=== PATIENT | male | born 1985 | race American Indian/Alaskan Native ===

== ENCOUNTER 2021-07-04 07:02 | Emergency (ER) | payer SELFPAY ==
[2021-07-04 07:50] VITALS: BP 120/81
[2021-07-04] MEDS ORDERED: KETOROLAC 60 MG/2 ML INJ IM ONE (08:12)
--- NOTE | 2021-07-04 08:47 | XRay Report ---
Left ankle 3 views INDICATION: Ankle pain FINDINGS: Postoperative change with medial malleolar screws. Alignment appears normal. Appears intact. No acute fracture is seen. Signer Name: Jorge Alberto Jc MD Signed: 07/04/2021 8:43 AM Workstation Name: [id number]
--- NOTE | 2021-07-04 08:48 | Emergency Department Report ---
ED Lower Extremity HPI - General Chief Complaint: Extremity Injury, Lower Stated Complaint: ANKLE PAIN Source: patient Mode of arrival: Ambulatory Limitations: No Limitations - History of Present Illness Initial Comments: 36-year-old male presented ED complaining of left ankle pain. Patient states he was attempting to take a shower and slipped and fell hitting left ankle on the bathtub x 1day. The patient had a prior surgery to the left ankle from a ground-level fall in 2011. He states that he has eight screws [address]. patient is able to bear weight with pain. Mild edema noted. No obvious deformity noted. No obvious distracting injury noted. Patient denies any loss of conscious. MD Complaint: ankle injury, fall -: Last night Injury: Ankle: Right (slip and fall while attempt to get in shower ) Place: home Severity: moderate Severity scale (0 -10): 9 Improves With: nothing Worsens With: weight bearing Associated Symptoms: able to partially bear weight, ambulatory. denies: numbness, tingling Treatments Prior to Arrival: NSAIDS - Related Data Previous Rx's Medication Instructions Recorded Last Taken Type Ibuprofen [Motrin 800 MG tab] 800 mg PO Q8HR PRN #30 tablet 12/07/15 Unknown Rx cephALEXin [Keflex] 500 mg PO Q6HR #28 capsule 12/07/15 Unknown Rx traMADoL [Ultram 50 MG tab] 50 mg PO Q6HR PRN #15 tablet 12/07/15 Unknown Rx Ibuprofen [Motrin] 800 mg PO Q8HR PRN 15 Days #30 07/04/21 Unknown Rx tablet Allergies Allergy/AdvReac Type Severity Reaction Status Date / Time No Known Allergies Allergy Unverified 10/24/13 16:44 ED Review of Systems ROS: Stated complaint: ANKLE PAIN Other details as noted in HPI Constitutional: denies: chills, fever Eyes: denies: eye pain, eye discharge, vision change ENT: denies: ear pain, throat pain Respiratory: denies: cough, shortness of breath, wheezing Cardiovascular: denies: chest pain, palpitations Endocrine: no symptoms reported Gastrointestinal: denies: abdominal pain, nausea, diarrhea Genitourinary: denies: urgency, dysuria Musculoskeletal: joint swelling. denies: back pain Skin: denies: rash, lesions Neurological: denies: headache, weakness, paresthesias Psychiatric: denies: anxiety, depression Hematological/Lymphatic: denies: easy bleeding, easy bruising ED Past Medical Hx - Past Medical History Previous Medical History?: Yes Hx Hypertension: Yes - Surgical History Past Surgical History?: Yes Additional Surgical History: ankle surgery 2013. Hernia Repair - Social History Smoking Status: Current Every Day Smoker Substance Use Type: None - Medications Home Medications: Home Medications Medication Instructions Recorded Confirmed Last Taken Type Ibuprofen [Motrin 800 MG tab] 800 mg PO Q8HR PRN #30 tablet 12/07/15 Unknown Rx cephALEXin [Keflex] 500 mg PO Q6HR #28 capsule 12/07/15 Unknown Rx traMADoL [Ultram 50 MG tab] 50 mg PO Q6HR PRN #15 tablet 12/07/15 Unknown Rx Ibuprofen [Motrin] 800 mg PO Q8HR PRN 15 Days #30 07/04/21 Unknown Rx tablet ED Physical Exam - General Limitations: No Limitations General appearance: alert, in no apparent distress - Head Head exam: Present: atraumatic, normocephalic - Eye Eye exam: Present: normal appearance - ENT ENT exam: Present: mucous membranes moist - Neck Neck exam: Present: normal inspection - Respiratory Respiratory exam: Present: normal lung sounds bilaterally. Absent: respiratory distress - Cardiovascular Cardiovascular Exam: Present: regular rate, normal rhythm. Absent: systolic murmur, diastolic murmur, rubs, gallop - GI/Abdominal GI/Abdominal exam: Present: soft, normal bowel sounds - Rectal Rectal exam: Present: deferred - Extremities Exam Extremities exam: Present: normal inspection - Expanded Lower Extremity Exam Left Ankle exam: Present: tenderness, swelling. Absent: abrasion, laceration, deformity, dislocation, erythema, anterior draw sign - Back Exam Back exam: Present: normal inspection - Neurological Exam Neurological exam: Present: alert, oriented X3 - Psychiatric Psychiatric exam: Present: normal affect, normal mood - Skin Skin exam: Present: warm, dry, intact, normal color. Absent: rash ED Course Vital Signs 07/04/21 07:47 Temperature 97.4 F L Pulse Rate 82 Respiratory 16 Rate Blood Pressure 120/81 [Left] O2 Sat by Pulse 100 Oximetry ED Lower Extremity MDM - Radiology Data Radiology results: report reviewed - Medical Decision Making 36-year-old male presented ED complaining of left ankle pain. Patient states he was attempting to take a shower and slipped and fell hitting left ankle on the bathtub x 1day. The patient had a prior surgery to the left ankle from a ground -level fall in 2011. He states that he has eight [address]. patient is able to bear weight with pain. Mild edema noted. No obvious deformity noted. No obvious distracting injury noted. Patient denies any loss of conscious. Critical care attestation.: If time is entered above; I have spent that time in minutes in the direct care of this critically ill patient, excluding procedure time. ED Disposition Clinical Impression: Left ankle sprain Disposition: HOME / SELF CARE / HOMELESS Is pt being admited?: No Does the pt Need Aspirin: No Condition: Stable Instructions: Ankle Sprain, [id number] Additional Instructions: Take pain medication as needed for pain Follow-up with orthopedic Follow instruction on discharge for rest ice elevation Prescriptions: Ibuprofen [Motrin] 800 mg PO Q8HR PRN 15 Days #30 tablet PRN Reason: Pain, Moderate (4-6) Referrals: PRIMARY MD MELISA [Primary Care Provider] - 3-5 Days GEENA NASSAR MD [Staff Physician] - 3-5 Days Time of Disposition: 09:08
== END 2021-07-04 09:58 | disposition home or self-care (01) ==
LOC: ED 07:02
DX: S93.402A Sprain of unspecified ligament of left ankle, initial encounter (principal); F17.200 Nicotine dependence, unspecified, uncomplicated; I10 Essential (primary) hypertension; X58.XXXA Exposure to other specified factors, initial encounter; Y93.89 Activity, other specified; Y92.89 Other specified places as the place of occurrence of the external cause; Y99.8 Other external cause status
CPT/HCPCS: 73610; 96372; 99283; J1885